=== PATIENT | male | born 1945 | race Caucasian/White ===

== ENCOUNTER → 2017-01-02 | Outpatient (CLI) | payer OTHER, MEDICARE ==
--- NOTE | 2017-01-02 10:01 | RAD ---
Chest, 2 views, 01/02/2017: History: Cough Comparison is made to a study from 10/25/2014. The heart size and pulmonary vascularity are normal. There is mild calcific plaquing and tortuosity of the thoracic aorta. There appears to be mild basilar scarring. A calcified granuloma is present in the right lower chest. No acute pulmonary infiltrate is seen. There is no evidence of pleural fluid. Moderate spurring is present in the spine. IMPRESSION: No acute cardiopulmonary abnormality is detected.
== END | disposition home or self-care (01) ==
LOC: DXRADRC 09:03
PROVIDERS: ATTEND Family Medicine
DX: R05 Cough (principal); I71.4 Abdominal aortic aneurysm, without rupture
CPT/HCPCS: 71020

== ENCOUNTER → 2017-01-20 | Outpatient (CLI) | payer OTHER, MEDICARE ==
--- NOTE | 2017-01-21 09:29 | CARD ---
APPROVED REPORT EXAM: Two-dimensional and M-mode echocardiogram with Doppler and color Doppler. Other Information Quality : GoodHR: 88bpm Rhythm : Atrial Fibrillation INDICATION Atrial Fibrillation 2D DIMENSIONS RVDd2.9 (2.9-3.5cm)Left Atrium(2D)4.4 (1.6-4.0cm) IVSd1.0 (0.7-1.1cm)Aortic Root(2D)3.0 (2.0-3.7cm) LVDd4.6 (3.9-5.9cm)LVOT Diameter2.3 (1.8-2.4cm) PWd1.0 (0.7-1.1cm)LVDs3.5 (2.5-4.0cm) FS (%) 24.7 %SV47.5 ml Aortic Valve AoV Peak Hu.118.4cm/sAoV VTI25.4cm AO Peak GR.5.6mmHgLVOT Peak Hu.84.7cm/s LVOT VTI 18.40cmAO Mean GR.3mmHg MAYLIN (VMAX)2.56ir3LFH (VTI)2.99cm2 AI P 1/2 Lkkz445sv Pulmonary Valve PV Peak Ubgovhhe216.7cm/sPV Peak Grad.6mmHg Tricuspid Valve TR P. Bmvhaiai944qi/sTR Peak Gr.35mmHg Pulmonary Vein S1 Pthyyxxg11.4cm/s LEFT VENTRICLE The left ventricle is normal size. There is normal left ventricular wall thickness. Left ventricle sy stolic function is mildly decreased. The Ejection Fraction is estimated at 45%. Tissue Doppler imagin g reveals mild left ventricular diastolic dysfunction. No left ventricle thrombus noted on this study . RIGHT VENTRICLE The right ventricle is normal size. There is normal right ventricular wall thickness. The right ventr icular systolic function is normal. ATRIA The left atrium is mildly dilated. The right atrium size is normal. The interatrial septum is intact with no evidence for an atrial septal defect or patent foramen ovale as noted on 2-D or Doppler imagi ng. AORTIC VALVE The aortic valve is mildly sclerotic. The aortic valve is trileaflet. Doppler and Color Flow revealed mild aortic regurgitation. There is no significant aortic valvular stenosis. MITRAL VALVE The mitral valve leaflets are mildly thickened. There is no evidence of mitral valve prolapse. There is no mitral valve stenosis. Doppler and Color Flow revealed mild mitral regurgitation. TRICUSPID VALVE Doppler and Color Flow revealed mild to moderate tricuspid regurgitation. The pulmonary artery systol ic pressure is estimated at 38 mmHg. PULMONIC VALVE Doppler and Color Flow revealed mild pulmonic valvular regurgitation. There is no pulmonic valvular s tenosis. GREAT VESSELS The aortic root is normal in size. The ascending aorta is normal in size. The pulmonary artery is nor mal. The IVC is normal in size and collapses >50% with inspiration. PERICARDIAL EFFUSION There is no evidence of significant pericardial effusion. Critical Notification Critical Value: No <Conclusion> The left ventricle is normal size. Left ventricle systolic function is mildly decreased. The Ejection Fraction is estimated at 45%. Tissue Doppler imaging reveals mild left ventricular diastolic dysfunction. The left atrium is mildly dilated. There is no significant aortic valvular stenosis. Doppler and Color Flow revealed mild aortic regurgitation. Doppler and Color Flow revealed mild mitral regurgitation. Doppler and Color Flow revealed mild to moderate tricuspid regurgitation. The pulmonary artery systolic pressure is estimated at 38 mmHg.
== END | disposition home or self-care (01) ==
LOC: ECHO 10:44
PROVIDERS: ATTEND Internal Medicine Cardiovascular Disease
DX: I08.3 Combined rheumatic disorders of mitral, aortic and tricuspid valves (principal); I48.91 Unspecified atrial fibrillation
CPT/HCPCS: 93306

== ENCOUNTER → 2017-01-26 | Outpatient (CLI) | payer OTHER, MEDICARE ==
[~2017-01-26] VITALS: Ht 182.9 cm; Wt 108.0 kg
[~2017-01-26] MED LIST: METO25TA2 PO; REGADENOSON 0.4 MG/5 ML DISP.SYRIN. IV ONE
--- NOTE | 2017-01-26 12:25 | RAD ---
APPROVED REPORT Test Type: Pharmacological Stress Nurse/Tech: FLORIAN Bolton Test Indications: Afib Cardiac History: Afib Medications: See EHR Medical History: see EHR Resting ECG: Afib NS ST/T abn Resting Heart Rate: 67 bpm Resting Blood Pressure: 138/94mmHg Pretest Chest Pain: None Nurse/Tech Notes Consent: The procedure was explained to the patient in lay terms. Informed consent was witnessed. Perfecto eout was entered into [employer]. History and Stress Test performed by FLORIAN Bolton Pharm. Details Pharmacologic stress testing was performed using 0.4mg per 5ml of regadenoson given intravenously ove r 7-10 seconds. POST EXERCISE Reason for Termination: Infusion complete Max HR: 109 bpm Max Blood Pressure: 150/65mmHg Blood Pressure response to exercise: Normal blood pressure response during stress. Chest Pain: No. INTERPRETATION Stress EKG Conclusion: SOA with Lexiscan resolved with completion - no acute changes Imaging Protocol IMAGE PROTOCOL: Rest Tc-99m/stress Tc-99m 1 day Rest: Stress: Viability: Radiopharm.Tc99m NrqoiyserNk52r Sestamibi Dose11.4mCi 35.1mCi Duration 17min. 12min. Img Date 01/26/2017 01/26/2017 Inj-Img Etuw25bxu. 60min. Rest Admin Site:IV - Left AntecubitalAdministrator: FLORAIN Bolton Stress Admin Site: IV - Left AntecubitalAdministrator: FLORIAN Bolton STRESS DATA End Diast. Vol.141.0mlAv. Heart Rate82.0bpm LVEDV index BSA2.0mlCardiac Output0.1L/min End Syst. Vol.57.0mlCO Index BSA6.9L/min LVESV index BSA1.0mlMyocardial Jtgc484.0g Eject. Ejqkauod13.0% Stress Rates Pk. Fill Rate2.88EDV/secLVtime Pk. Fill 154.58msec Pk. Empty Rate3.08ESV/secLVtime Pk. Qaopt995.11msec 07/29 Pk. Fill1.30EDV/sec Stress Scores Regional WT1.00Summed WT13.00 Regional WM0.00Summed WM5.00 The rest and stress images show normal perfusion, normal contraction and thickening. LV Perf. Quant 17 Seg. SSS3.00 17 Seg. SRS3.00 17 Seg. SDS1.00 Stress Defect Extent (% LAD)0.00Rest Defect Extent (% LAD)0.00Rev. Defect Extent (% LAD)0.00 Stress Defect Extent (% LCX) 7.50Rest Defect Extent (% LCX)10.00Rev. Defect Extent (% LCX)0.00 Stress Defect Extent (% RCA)10.00Rest Defect Extent (% RCA)4.40Rev. Defect Extent (% RCA)4.40 Stress Defect Extent (% ANDREA)5.70Rest Defect Extent (% ANDREA)3.90Rev. Defect Extent (% ANDREA)0.90 Other Information Quality:Good Risk Assessment: Low Risk Conclusion 1. No evidence of stress induced EKG changes. (Baseline Afib) 2. Normal perfusion at stress/rest. 3. Subdiaphragmatic attenuation artifact noted. 4. Normal EF. 5. Low risk study
== END | disposition home or self-care (01) ==
LOC: NM 07:52
PROVIDERS: ATTEND Internal Medicine Cardiovascular Disease
DX: I48.91 Unspecified atrial fibrillation (principal); Z79.01 Long term (current) use of anticoagulants
CPT/HCPCS: 78452; 93017; 96374; 96375; 96376; A9500; J2785

== ENCOUNTER → 2018-10-13 | Outpatient (CLI) | payer OTHER, MEDICARE ==
[~2018-10-13] MED LIST changes: -REGADENOSON 0.4 MG/5 ML DISP.SYRIN. IV ONE
--- NOTE | 2018-10-13 15:56 | RAD ---
CHEST PA LATERAL CLINICAL INDICATION: cough congestion chills COMPARISON: None FINDINGS: Heart is normal in size. Lungs are hyperinflated. Prominent no pneumothorax or pleural effusion. Visualized bony thorax is within normal limits. Bilateral bronchial markings are seen. IMPRESSION: Findings of bronchitis. COPD. Electronically signed by: Mook [place] DO (10/13/2018 3:53 PM) [facility]
== END | disposition home or self-care (01) ==
LOC: RAD 15:38
PROVIDERS: ATTEND Registered Nurse
DX: J44.9 Chronic obstructive pulmonary disease, unspecified (principal); J40 Bronchitis, not specified as acute or chronic
CPT/HCPCS: 71046

== ENCOUNTER → 2018-11-09 | Outpatient (CLI) | payer OTHER, MEDICARE ==
--- NOTE | 2018-11-09 15:33 | CARD ---
MR#: [id number] Date of Study: 11/09/2018 Ordering Physician: NIRMAL DUFFY, Referring Physician: NIRMAL DUFFY, Tech: Radha Zimmer ANALIA APPROVED REPORT EXAM: Two-dimensional and M-mode echocardiogram with Doppler and color Doppler. Other Information Quality : Good Rhythm : Atrial Fibrillation INDICATION Atrial Fibrillation 2D DIMENSIONS RVDd2.3 (2.9-3.5cm)Left Atrium(2D)3.9 (1.6-4.0cm) IVSd1.3 (0.7-1.1cm)Aortic Root(2D)3.1 (2.0-3.7cm) LVDd4.6 (3.9-5.9cm)LVOT Diameter2.3 (1.8-2.4cm) PWd1.0 (0.7-1.1cm)LVDs3.4 (2.5-4.0cm) FS (%) 24.3 %SV46.0 ml LVEF(%)48.4 (>50%) Aortic Valve AoV Peak Hu.136.0cm/sAoV VTI23.6cm AO Peak GR.7.4mmHgLVOT Peak Hu.109.4cm/s LVOT VTI 20.21cmAO Mean GR.4mmHg MAYLIN (VMAX)3.78fv7XCL (VTI)3.47cm2 AI P 1/2 Amye265of Tricuspid Valve TR P. Obfvatwn868ke/sRAP IGNKYXHE5qkYt TR Peak Gr.20ldJzUFPD59ebHu LEFT VENTRICLE The left ventricle is normal size. There is mild asymmetric septal hypertrophy. The left ventricular systolic function is normal. The Ejection Fraction is 55-60%. There is normal LV segmental wall motio n. RIGHT VENTRICLE The right ventricle is normal size. The right ventricular systolic function is normal. ATRIA The left atrium size is normal. The right atrium size is normal. The interatrial septum is intact wit h no evidence for an atrial septal defect or patent foramen ovale as noted on 2-D or Doppler imaging. AORTIC VALVE The aortic valve is calcified but opens well. Doppler and Color Flow revealed mild aortic regurgitati on. There is no significant aortic valvular stenosis. MITRAL VALVE The mitral valve is calcified but opens well. The anterior mitral valve leaflet is redundant but not prolapsed. There is no mitral valve stenosis. Doppler and Color-flow revealed trace to mild mitral re gurgitation. TRICUSPID VALVE The tricuspid valve is normal in structure and function. Doppler and Color Flow revealed mild tricusp id regurgitation. There is mild pulmonary hypertension. The PA pressure was estimated at 37 mmHg. The re is no tricuspid valve stenosis. PULMONIC VALVE The pulmonic valve is not well visualized. Doppler and Color Flow revealed trace to mild pulmonic lotus vular regurgitation. There is no pulmonic valvular stenosis. GREAT VESSELS The aortic root is normal in size. The ascending aorta is normal in size. The IVC is normal in size a nd collapses >50% with inspiration. PERICARDIAL EFFUSION There is no evidence of significant pericardial effusion. Critical Notification Critical Value: No <Conclusion> The left ventricular systolic function is normal. The Ejection Fraction is 55-60%. There is normal LV segmental wall motion. Mild aortic regurgitation. Trace to mild mitral regurgitation. Mild tricuspid regurgitation. There is mild pulmonary hypertension. The PA pressure was estimated at 37 mmHg. There is no evidence of significant pericardial effusion. Signed by : Dejon Peña, Electronically Approved : 11/09/2018 15:32:52
== END | disposition home or self-care (01) ==
LOC: ECHO 12:35
PROVIDERS: ATTEND Internal Medicine Cardiovascular Disease
DX: I08.2 Rheumatic disorders of both aortic and tricuspid valves (principal); I27.20 Pulmonary hypertension, unspecified; I48.91 Unspecified atrial fibrillation
CPT/HCPCS: 36415; 83880; 93306